=== PATIENT | male | born 1995 | race African-American/Black ===

== ENCOUNTER 2017-04-11 14:15 | Emergency (ER) | payer OTHER ==
[~2017-04-11] VITALS: Ht 167.6 cm; Wt 108.9 kg
[2017-04-11] MEDS ORDERED: ONDANSETRON 4 MG ORAL DISINTEGRATING TAB (S0181) PO ONE (15:15)
[2017-04-11] MEDS ORDERED: ZOFR4TAB3 PO (15:55)
[2017-04-11 16:01] VITALS: BP 134/75
== END 2017-04-11 16:12 | disposition home or self-care (01) ==
LOC: M ED 15:15
DX: R10.13 Epigastric pain (principal); R11.2 Nausea with vomiting, unspecified